=== PATIENT | female | born 1950 | race Caucasian/White ===

== ENCOUNTER 2024-01-27 16:07 | Inpatient (IN) ==
--- NOTE | 2024-01-27 16:48 | Emergency Department Note ---
Impression & Plan Dizziness, Unsteady, Headache ED Provider Note Provider: Andrew Claire MD DATE OF SERVICE: 01/27/2024 CHIEF COMPLAINT: Headache, near syncope, unsteady HISTORY OF PRESENT ILLNESS: Patient is a 73-year-old female past medical history of diabetes, hyperlipidemia, hypertension, and heart valve replacement on aspirin presenting here today with family. Patient over the past 3 to 4 weeks has had some intermittent episodes of faintness/dizziness and unsteadiness. Last 3 days has had fairly consistent headache although improved with Aleve. No fevers. No trauma or falls. Today woke up okay and then around 1030 to 11 AM this morning when bending over the bathroom had sudden onset of severe dizziness has been persistent. Unable to walk without significant assistance as she is so unsteady. Denies new numbness or tingling the extremities. Daughter states the patient had some slurred speech that has improved some from earlier. No chest pain or difficulty breathing or abdominal pain or nausea or vomiting reported. Has had some chronic ongoing diarrheal issues and stopped Ozempic about a week ago discussion with her doctor to see if this improves this. Denies cough or cold symptoms. Denies visual change. States when she turns her head or moves the dizziness seems to worsen at this time. Denies difficulty getting her words out or sinus congestion at this point. PAST MEDICAL HISTORY: As noted above MEDICATIONS: Reviewed no medications includes aspirin SOCIAL HISTORY: Non-smoker PHYSICAL EXAM: GENERAL: alert and oriented in no acute distress on stretcher daughter and grandson at bedside Head: normocephalic and atraumatic EYES: No injection, discharge or icterus. PERRL, EOMI. NECK: Trachea midline. Supple. ENT: Mucous membranes pink and moist. Pharynx without erythema or exudate. TMs clear bilaterally LUNGS: Airway patent. No retractions. Breath sounds clear with good air entry bilaterally. HEART: Regular rate and rhythm. No chest wall tenderness ABDOMEN: Soft and non-tender, without guarding or rebound. SKIN: Acyanotic, warm, dry, without rashes EXTREMITIES: Without swelling, tenderness or deformity NEUROLOGICAL: No tongue deviation. Moving all extremities. No leg drift. No aphasia. No facial droop or slurred speech. Normal strength and tone in the extremities. Sensation to gross touch normal. With movement of the head turning [id number] exacerbates dizziness symptoms. EK bpm normal sinus rhythm. No PVC or PAC. No acute ST segment elevation or depression with a QTc of 470. CONTINUOUS CARDIAC MONITORING: was ordered and showed a heart rate of 70s to 80s bpm in normal sinus rhythm Patient's laboratory studies and imaging reviewed. Differential includes Benign positional vertigo, dehydration, hypovolemia, anemia, tumor, infection, hypoglycemia, electrolyte abnormalities, cardiac sources, intracerebral event, toxicologic, neurologic, as well as other pathologies. IMPRESSION/MEDICAL DECISION MAKING: No infectious symptoms or fever reported. Leukocytosis 1.6 nonspecific. No anemia. No severe electrolyte abnormality signs of renal dysfunction. No thyroid dysfunction or evidence of acute cardiac injury with reassuring EKG and troponin. Chest x-ray without acute finding. CT and CTA of the head and neck obtained to look for any intracranial bleed given the headache and her dizziness symptoms or any acute vascular abnormality. Patient symptoms are somewhat provoked with seems almost more inner ear but then the slurred speech earlier does not really correlate well with this. Certainly given her age and risk factors CVA kelli in the differential but outside any window for thrombolytics given multiple hours since onset and the headache actually been there for several days. UA completed nitrite positive with 2+ bacteria but no white blood cells. Will send for culture but the patient denies symptoms. Will hold off on empiric treatment at this time. Given some Tylenol for the headache initially. No believe this represents subarachnoid hemorrhage or meningitis based on exam. No neurological deficits in extremities. 1 view chest x-ray per my interpretation without evidence of pneumonia pneumothorax. No significant pulmonary edema appreciable. Mild improvement of the headache. Still somewhat unsteady go to the bathroom. Will try low-dose of some meclizine and a small dose of Reglan to see if this further improves her headache and dizziness symptoms. CT of the head and CTA of the head and neck per radiology shows after some delay in obtaining the report no acute intracranial bleed or acute vascular abnormality./Chronic diseases noted in the radiology report. Patient with some improvement. Again we have some concerns given her comorbidities and the report of slurred speech this could be more than a vertiginous situation as such in discussion with her and family will bring in for further observation. Hospitalist team was consulted. DIAGNOSIS: Dizziness, unsteady, headache DISPOSITION: Hospitalist will evaluate Patient was agreeable with this plan. Past Med/Surg History Problem List (Updated 01/27/24 @ 21:14 by Andrew Claire M.D.) Headache (Acute) Unsteady (Acute) Dizziness (Acute) Social History Smoking Status: Never smoker Preferred Language: Palestinian Feels Safe at Home: Yes Allergies Allergies Allergy/AdvReac Type Severity Reaction Status Date / Time Penicillins Allergy Unknown HIVES Verified 01/27/24 17:02 Home Meds Home Medications Medication Instructions Recorded Confirmed amlodipine 5 mg tablet 5 mg PO QAM 01/27/24 01/27/24 aspirin 81 mg tablet,delayed 81 mg PO DAILY 01/27/24 01/27/24 release buspirone 5 mg tablet 5 mg PO BID PRN Anxiety 01/27/24 01/27/24 carvedilol 6.25 mg tablet 6.25 mg PO BID 01/27/24 01/27/24 fluoxetine 40 mg capsule 40 mg PO QAM 01/27/24 01/27/24 metformin 1,000 mg tablet 1,000 mg PO BID 01/27/24 01/27/24 omeprazole 40 mg capsule,delayed 40 mg PO BID 01/27/24 01/27/24 release pravastatin 20 mg tablet 20 mg PO QAM 01/27/24 01/27/24 zolpidem 10 mg tablet 10 mg PO HS 01/27/24 01/27/24 Results & Data (ED) Vital Signs Vital Signs - 24 hr 01/27/24 16:16 01/27/24 16:28 01/27/24 16:38 Temperature 36.6 C Temperature Source Temporal Artery Scan Pulse Rate 81 81 Pulse Rate [Left Apical] 79 Respiratory Rate 20 17 Respiratory Effort / Characteristics Non-Labored Non-Labored Spontaneous Respiratory Depth Normal Normal Respiratory Pattern Regular Blood Pressure 148/85 H Blood Pressure [Right Arm] 202/106 H Blood Pressure Mean 106 Blood Pressure Mean [Right Arm] 138 Pulse Oximetry 97 97 Oxygen Delivery Method Room Air Room Air Sepsis Recent Fever Within 48 Hours No Sepsis New/Unexplained Change in Mental Status No Sepsis Action Taken by Nursing No Action Required 01/27/24 16:57 01/27/24 17:00 01/27/24 17:15 Temperature Temperature Source Pulse Rate 72 75 74 Pulse Rate [Left Apical] Respiratory Rate 14 15 14 Respiratory Effort / Characteristics Respiratory Depth Respiratory Pattern Blood Pressure Blood Pressure [Right Arm] Blood Pressure Mean Blood Pressure Mean [Right Arm] Pulse Oximetry 97 94 96 Oxygen Delivery Method Room Air Room Air Room Air Sepsis Recent Fever Within 48 Hours Sepsis New/Unexplained Change in Mental Status Sepsis Action Taken by Nursing 01/27/24 17:30 01/27/24 17:42 01/27/24 18:02 Temperature Temperature Source Pulse Rate 73 74 Pulse Rate [Left Apical] Respiratory Rate 14 22 Respiratory Effort / Characteristics Respiratory Depth Respiratory Pattern Blood Pressure Blood Pressure [Right Arm] 199/93 H Blood Pressure Mean Blood Pressure Mean [Right Arm] 128 Pulse Oximetry 94 97 Oxygen Delivery Method Room Air Room Air Sepsis Recent Fever Within 48 Hours Sepsis New/Unexplained Change in Mental Status Sepsis Action Taken by Nursing 01/27/24 18:09 01/27/24 18:18 01/27/24 18:30 Temperature Temperature Source Pulse Rate 76 73 75 Pulse Rate [Left Apical] Respiratory Rate 20 21 23 Respiratory Effort / Characteristics Respiratory Depth Respiratory Pattern Blood Pressure 165/82 H Blood Pressure [Right Arm] Blood Pressure Mean 109 Blood Pressure Mean [Right Arm] Pulse Oximetry 96 96 94 Oxygen Delivery Method Room Air Room Air Room Air Sepsis Recent Fever Within 48 Hours Sepsis New/Unexplained Change in Mental Status Sepsis Action Taken by Nursing 01/27/24 19:00 01/27/24 19:36 01/27/24 19:42 Temperature Temperature Source Pulse Rate 75 73 73 Pulse Rate [Left Apical] Respiratory Rate 13 22 12 Respiratory Effort / Characteristics Respiratory Depth Respiratory Pattern Blood Pressure 132/75 Blood Pressure [Right Arm] Blood Pressure Mean 94 Blood Pressure Mean [Right Arm] Pulse Oximetry 96 97 97 Oxygen Delivery Method Room Air Room Air Room Air Sepsis Recent Fever Within 48 Hours Sepsis New/Unexplained Change in Mental Status Sepsis Action Taken by Nursing 01/27/24 20:00 01/27/24 20:23 01/27/24 20:33 Temperature Temperature Source Pulse Rate 71 76 72 Pulse Rate [Left Apical] Respiratory Rate 15 13 Respiratory Effort / Characteristics Respiratory Depth Respiratory Pattern Blood Pressure 147/78 H Blood Pressure [Right Arm] Blood Pressure Mean 101 Blood Pressure Mean [Right Arm] Pulse Oximetry 95 Oxygen Delivery Method Room Air Sepsis Recent Fever Within 48 Hours Sepsis New/Unexplained Change in Mental Status Sepsis Action Taken by Nursing 01/27/24 21:00 Temperature Temperature Source Pulse Rate 72 Pulse Rate [Left Apical] Respiratory Rate 15 Respiratory Effort / Characteristics Respiratory Depth Respiratory Pattern Blood Pressure Blood Pressure [Right Arm] Blood Pressure Mean Blood Pressure Mean [Right Arm] Pulse Oximetry 95 Oxygen Delivery Method Room Air Sepsis Recent Fever Within 48 Hours Sepsis New/Unexplained Change in Mental Status Sepsis Action Taken by Nursing Laboratory Data 01/27/24 16:37 01/27/24 16:37 Lab Results 01/27/24 01/27/24 Range/Units 16:37 18:43 WBC 11.63 H (4.8-10.8) K/ul RBC 5.22 (4.20-5.40) M/uL Hgb 14.3 (12.0-16.0) g/dl Hct 43.1 (37.0-47.0) % MCV 82.6 (80.0-100.0) fL MCH 27.4 (25.0-34.0) pg MCHC 33.2 (32.0-36.0) g/dL RDW Std Deviation 39.2 (36.4-46.3) fL RDW Coeff of Meet 13.1 (11.5-14.5) % Plt Count 245 (130-400) K/uL MPV 9.6 (9.4-12.4) fL Immature Gran % (Auto) 0.4 % Neut % (Auto) 84.1 % Lymph % (Auto) 10.8 % [place] % (Auto) 4.1 % Eos % (Auto) 0.3 % Baso % (Auto) 0.3 % Neut # (Auto) 9.77 H (1.40-6.50) K/uL Lymph # (Auto) 1.26 (1.20-3.40) K/uL [place] # (Auto) 0.48 (0.11-0.59) K/uL Eos # (Auto) 0.04 (0.00-0.50) K/uL Baso # (Auto) 0.03 (0.00-0.20) K/uL Immature Gran # (Auto) 0.05 (0.01-0.20) K/uL PT 10.3 (9.0-12.0) Seconds INR 0.9 (0.9-1.1) Sodium 139 (136-145) mmol/L Potassium 4.1 (3.5-5.1) mmol/L Chloride 108 H (98-107) mmol/L Carbon Dioxide 22 (21-32) mmol/L Anion Gap 9 (3-11) BUN 17 (6-23) mg/dl Creatinine 0.77 (0.6-1.2) mg/dl Est Cr Clr Drug Dosing 70.9 ml/min eGFR 80.39 BUN/Creatinine Ratio 22.1 H (10-20) Glucose 123 H (70-99(Fasting)) mg/dl Calcium 9.4 (8.6-10.3) mg/dl Magnesium 1.8 (1.7-2.4) mg/dl Total Bilirubin 0.3 (0.2-1.0) mg/dl AST 11 L (13-39) U/L ALT 8 (7-52) U/L Alkaline Phosphatase 64 (34-104) U/L Troponin I High Sens 4.0 (0-14) pg/ml Total Protein 7.1 (6.0-8.3) gm/dl Albumin 4.0 (3.4-5.0) gm/dl Globulin 3.1 (2.5-4.0) gm/dl Albumin/Globulin Ratio 1.3 (0.9-2) TSH 0.610 (0.300-4.500) uIu/ml Urine Color Yellow Urine Appearance Clear (Clear) Urine pH 5.5 (4.5-7.5) Ur Specific [place] > 1.045 H (1.000-1.030) Urine Protein Negative (Negative) Urine Glucose (UA) Negative (Negative) Urine Ketones Trace H (Negative) Urine Blood Negative (Negative) Urine Nitrite Positive A (Negative) Urine Bilirubin Negative (Negative) Urine Urobilinogen Negative (Negative) Ur Leukocyte Esterase Negative (Negative) Urine WBC (Auto) 0-5 (0-5) /hpf Urine RBC (Auto) 0-2 (0-2) /hpf U Hyaline Cast (Auto) 6-10 H (0-2) /lpf U Epithel Cells (Auto) 0-2 (0-2) /hpf Urine Bacteria (Auto) 2+ H (None Seen) Administered Medications Discontinued Medications Acetaminophen (Acetaminophen 500 Mg Tab) 1,000 mg PO NOW STA Stop: 01/27/24 16:45 Last Admin: 01/27/24 16:51 Dose: 1,000 mg Documented By: [facility] Ioversol (Optiray 320 125ml) 116 ml IV ONCE ONE Stop: 01/27/24 17:55 Last Admin: 01/27/24 17:54 Dose: 116 ml Documented By: WANDAK Meclizine HCl (Meclizine Hcl 25 Mg Tab) 25 mg PO NOW STA Stop: 01/27/24 20:12 Last Admin: 01/27/24 20:16 Dose: 25 mg Documented By: ENE Metoclopramide HCl (Metoclopramide Hcl Inj 5 Mg/Ml 2 Ml Vial) 5 mg IV ONE ONE Stop: 01/27/24 20:12 Last Admin: 01/27/24 20:16 Dose: 5 mg Documented By: ARABELLA Discharge Plan Visit Data Chief Complaint: Dizziness Stated Complaint: DIZZY,SLUR IN SPEECH,NEAR SYNCOPE ED Provider: Andrew Claire Discharge Problem: Dizziness, Unsteady, Headache Patient Disposition: Being Evaluated by Hospitalist Forms Stand Alone Forms: [facility] Prescriptions Prescriptions: No Action fluoxetine 40 mg capsule 40 mg PO QAM buspirone 5 mg tablet 5 mg PO BID PRN (Reason: Anxiety) carvedilol 6.25 mg tablet 6.25 mg PO BID amlodipine 5 mg tablet 5 mg PO QAM omeprazole 40 mg capsule,delayed release(DR/EC) 40 mg PO BID aspirin 81 mg Tablet,Delayed Release (Dr/Ec) 81 mg PO DAILY metformin 1,000 mg tablet 1,000 mg PO BID pravastatin 20 mg tablet 20 mg PO QAM zolpidem 10 mg tablet 10 mg PO HS Referrals Referrals: Rickey Emery MD [Surgeon] -
[2024-01-27] MEDS: ACETAMINOPHEN 500 MG TAB PO STA (16:51)
[2024-01-27 16:57] LABS: Basophils # (auto) 0.03 K/uL (0.00-0.20); Basophils % (auto) 0.3 %; Eosinophils # (auto) 0.04 K/uL (0.00-0.50); Eosinophils % (auto) 0.3 %; Hematocrit (blood only) 43.1 % (37.0-47.0); Hemoglobin 14.3 g/dl (12.0-16.0); Immature Granulocytes # (auto) 0.05 K/uL (0.01-0.20); Immature Granulocytes % (auto) 0.4 %; Lymphocytes # (auto) 1.26 K/uL (1.20-3.40); Lymphocytes % (auto) 10.8 %; Mean Corpuscular Hemoglobin 27.4 pg (25.0-34.0); Mean Corpuscular Hgb Conc 33.2 g/dL (32.0-36.0); Mean Corpuscular Volume 82.6 fL (80.0-100.0); Mean Platelet Volume 9.6 fL (9.4-12.4); Monocytes # (auto) 0.48 K/uL (0.11-0.59); Monocytes % (auto) 4.1 %; Neutrophils # (auto) 9.77 K/uL (1.40-6.50); Neutrophils % (auto) 84.1 %; Platelet Count 245 K/uL (130-400); RDW Coefficient of Variation 13.1 % (11.5-14.5); RDW Standard Deviation 39.2 fL (36.4-46.3); Red Blood Count 5.22 M/uL (4.20-5.40); White Blood Count 11.63 K/ul (4.8-10.8)
[2024-01-27 17:13] LABS: Albumin Globulin Ratio 1.3 (0.9-2); BUN Creatinine Ratio 22.1 (10-20); Bilirubin,Total 0.3 mg/dl (0.2-1.0); Calcium 9.4 mg/dl (8.6-10.3); Creatinine Clr Calc Pharmacy 70.9 ml/min; Globulin 3.1 gm/dl (2.5-4.0); Magnesium 1.8 mg/dl (1.7-2.4); Potassium 4.1 mmol/L (3.5-5.1); Total Protein 7.1 gm/dl (6.0-8.3)
[2024-01-27 17:25] LABS: INR 0.9 (0.9-1.1); Prothrombin Time 10.3 Seconds (9.0-12.0)
[2024-01-27 17:30] LABS: Thyroid Stimulating Hormone 0.61 uIu/ml (0.300-4.500)
[2024-01-27] MEDS: OPTIRAY 320 125ml IV ONE (17:54)
[2024-01-27 19:10] LABS: Appearance Urine Clear (Clear); Bacteria Urine Automated 2+ (None Seen); Bilirubin Urine Negative (Negative); Blood Urine Negative (Negative); Color Urine Yellow; Epithelial Cell Urine Auto 0-2 /hpf (0-2); Glucose Urine UA Negative (Negative); Ketones Urine Trace (Negative); Leukocyte Esterase Urine Negative (Negative); Nitrite Urine Positive (Negative); Protein Urine Negative (Negative); RBC Urine Automated 0-2 /hpf (0-2); Specific Gravity Urine > 1.045 (1.000-1.030); Urobilinogen Urine Negative (Negative); WBC Urine Automated 0-5 /hpf (0-5); pH Urine 5.5 (4.5-7.5)
[2024-01-27] MEDS: MECLIZINE HCL 25 MG TAB PO STA (20:16)
[2024-01-27] MEDS: METOCLOPRAMIDE HCL INJ 5 MG/ML 2 ML VIAL IV ONE (20:16)
--- NOTE | 2024-01-27 21:28 | XRay Report ---
EXAM x-ray chest one-view portable CLINICAL HISTORY: Headache near syncope PRIORS: None TECHNIQUE: AP portable upright FINDINGS: The chest is well-expanded. No airspace consolidation, effusion or congestive changes. Moderate atherosclerotic disease of the aortic knob. Heart size is normal. No pneumothorax. Trachea is patent. Osseous structures demonstrate no acute abnormality. No radiopaque foreign body. IMPRESSION: No plain film evidence of an acute cardiopulmonary process. Electronically signed by Marcelle Goldberg 01-27-2024 6:44 PM
--- NOTE | 2024-01-27 21:28 | CT Scan Report ---
EXAM: CTA head with CLINICAL HISTORY: Headache, near syncope, weak TECHNIQUE: Contiguous CTA axial images were obtained through the head after the administration of intravenous contrast. Sagittal and coronal reformations are supplied. PRIORS: None FINDINGS: The vertebral arteries form the basilar artery at the skull base. Mild atherosclerotic disease of the right distal vertebral artery and cavernous portions of the internal carotid arteries without hemodynamically significant stenosis.. [place] is patent. No thrombus or hemodynamically significant stenosis. No aneurysmal dilatation or banerjee aneurysm. No enhancing mass in the brain. IMPRESSION: No CTA evidence of an acute vascular abnormality. Electronically signed by Marcelle Goldberg 01-27-2024 6:28 PM
--- NOTE | 2024-01-27 21:28 | CT Scan Report ---
EXAM: CT angio neck with con CLINICAL HISTORY: Headache, near syncope, weak TECHNIQUE: Contiguous axial images were obtained through the neck after the administration of intravenous contrast. Sagittal and coronal reformations are supplied. MIPS are supplied. PRIORS: None FINDINGS: A left-sided aortic arch is present with moderate atherosclerotic disease. Mild to moderate atherosclerotic disease of the takeoff of the great vessels with no hemodynamically significant stenosis. RIGHT: Moderate atherosclerotic plaque is present involving the carotid bulb and proximal internal carotid artery, with stenosis of approximately 50%. The common and external carotid artery are unremarkable. The internal carotid artery enters the petrous portion of the skull base normally. LEFT: Moderate atherosclerotic disease of the carotid artery bulb and proximal internal carotid artery with stenosis of approximately 50%. The common and external carotid arteries are unremarkable. The internal carotid artery enters the petrous portion of the skull base normally. The vertebral arteries are well opacified. The right vertebral artery is dominant. Both vertebral arteries contribute to the basilar artery at the level of the skull base. Heterogeneous nodular appearance of the thyroid. Lung apices are unremarkable. Trachea is patent. Moderate degenerative change throughout the cervical spine. IMPRESSION: Atherosclerotic disease as above with no hemodynamically significant stenosis at this time. Electronically signed by Marcelle Goldberg 01-27-2024 6:28 PM
--- NOTE | 2024-01-27 21:28 | CT Scan Report ---
EXAMINATION: Head CT without CLINICAL HISTORY: Headache, near syncope, weak PRIORS: None TECHNIQUE: Contiguous axial images were obtained through the head without the use of intravenous contrast. Sagittal and coronal reformations are supplied. FINDINGS: Age appropriate parenchymal volume is noted. Gallo-white differentiation is preserved. No edema or midline shift. No intra-axial or extra-axial hemorrhage. Ventricles are normal in size and configuration. Brainstem and cerebellum have a normal appearance. Calvarium unremarkable. Paranasal sinuses and mastoid air cells are well-pneumatized. Globes are intact. No retrobulbar abnormality. IMPRESSION: No CT evidence of an acute intracranial abnormality. Electronically signed by Marcelle Goldberg 01-27-2024 6:28 PM
[2024-01-27] MEDS: cefTRIAXone SODIUM 2,000 MG/50 ML BAG IV STA (21:33)
[2024-01-27] MEDS ORDERED: CEFEPIME 1000MG 1,000 MG/10 ML SYR IV STA (21:47)
[2024-01-27] MEDS: MAGNESIUM SULFATE / D5W 1 GM/100 ML BAG IV ONE (22:03)
--- NOTE | 2024-01-27 22:20 | History & Physical Report ---
Date of Service January 27, 2024 Assessment & Plan (1) Dizziness: Plan: Hypertensive crisis Rule out TIA given transient slurred speech symptoms as per patient account CPAP noncompliance for OLEG possibly contributory to uncontrolled hypertension Complicated UTI, no sepsis for now history bioprosthetic AVR hyperlipidemia, on statin Rx DM2 on oral medications, unknown baseline control anxiety/mood disorder, stable Admit to medical telemetry permissive hypertension for now given concern for TIA MRI brain, TTE for TIA workup Update lipid profile and hemoglobin A1c Neurology evaluation contingent on workup results. Urine CS, ceftriaxone ISS BG goal 1 10-1 40, carb count coverage DVT prophylaxis per Lovenox subcu Full code Patient daughter requesting updates providers. Ms. Michelle Goff, contact #[phone]. Text document was generated using [employer] voice recognition software. It may contain grammatical or spelling errors. Kindly contact undersigned for clarification of any documentation item in question. History of Present Illness Chief Complaint: Headache, dizziness, weakness Primary Care Provider: Ron Dudley History obtained from patient, family, and records. Medical history significant for history bioprosthetic AVR, hypertension, hyperlipidemia, OLEG (current CPAP noncompliance), DM2 on oral medications, anxiety/mood disorder. Last confinement 2006 under orthopedic service for elective right knee surgery. Last week, patient with intermittent episodes of dizziness described as lightheadedness. No spinning sensation or tinnitus or unusual hearing loss. Symptoms later followed by achy headache symptoms. Blood pressure at home okay as per patient although unable to provide numbers. Noncompliant with CPAP for more than 10 years due to machine issues. Denies chest pain, SOB, abdominal pain, dysuria symptoms. Transient slurred speech noted by daughter today. Highest SBP of 200s documented at the ER. Symptoms currently resolved. Medical History as above Surgical History : Knee surgery, carpal tunnel surgery, ovarian abscess removal, dental surgery, aortic valve surgery Family History : DM Personal/Social history : Non-smoker, no EtOH intake, retired from factory work Allergies Allergy/AdvReac Type Severity Reaction Status Date / Time Penicillins Allergy Unknown HIVES Verified 01/27/24 17:02 semaglutide [From Ozempic] AdvReac Intermediate Diarrhea Verified 01/28/24 10:44 Home Medications Medication Instructions Recorded Confirmed Type amlodipine 5 mg tablet 5 mg PO QAM 01/27/24 01/27/24 History aspirin 81 mg tablet,delayed 81 mg PO DAILY 01/27/24 01/27/24 History release buspirone 5 mg tablet 5 mg PO BID PRN Anxiety 01/27/24 01/27/24 History carvedilol 6.25 mg tablet 6.25 mg PO BID 01/27/24 01/27/24 History fluoxetine 40 mg capsule 40 mg PO QAM 01/27/24 01/27/24 History metformin 1,000 mg tablet 1,000 mg PO BID 01/27/24 01/27/24 History omeprazole 40 mg capsule,delayed 40 mg PO BID 01/27/24 01/27/24 History release pravastatin 20 mg tablet 20 mg PO QAM 01/27/24 01/27/24 History zolpidem 10 mg tablet 10 mg PO HS 01/27/24 01/27/24 History Past Med/Surg History Problem List (Updated 01/27/24 @ 21:14 by Andrew Claire M.D.) Headache (Acute) Unsteady (Acute) Dizziness (Acute) Social History Smoking Status: Never smoker Hx Alcohol Use: No Hx Substance Use: No Preferred Language: [place]i Communication Ability: Effective Junior Qa Analyst Required: No Beliefs That Will Affect Care: None Current Living Situation: Family Feels Safe at Home: Yes Assistive Devices: Denture - Upper and Glasses Review of Systems Review of Systems: As per HPI, all other systems reviewed and negative Physical Exam Physical Exam: GENERAL: Comfortable, pleasant, obese, short neck, slightly anxious, no respiratory distress SKIN: Normal color, warm HEENT: Bespectacled, pink palpebral conjunctivae, no ptosis, dry buccal mucosa NECK : Supple, no tenderness CHEST : Decreased breath sounds, no tenderness HEART : RRR, systolic murmur ABDOMEN: Some distention, nontender EXTREMITIES : Minimal LE swelling, no LE tenderness, no other conspicuous deformities noted NEUROLOGIC : Coherent, no facial asymmetry, no other gross focality Results & Data Results & Data Vital Signs (Past 12 Hours) Vital Signs Temp Pulse Pulse Resp BP BP Pulse Ox 01/27/24 22:03 74 16 155/75 H 96 01/27/24 21:36 74 21 160/79 H 97 01/27/24 21:21 70 13 97 01/27/24 21:18 71 17 97 01/27/24 21:00 72 15 95 01/27/24 20:33 72 13 01/27/24 20:23 76 01/27/24 20:00 71 15 147/78 H 95 01/27/24 19:42 73 12 97 01/27/24 19:36 73 22 97 01/27/24 19:00 75 13 132/75 96 01/27/24 18:30 75 23 165/82 H 94 01/27/24 18:18 73 21 96 01/27/24 18:09 76 20 96 01/27/24 18:02 199/93 H 01/27/24 17:42 74 22 97 01/27/24 17:30 73 14 94 01/27/24 17:15 74 14 96 01/27/24 17:00 75 15 94 01/27/24 16:57 72 14 97 01/27/24 16:38 79 17 202/106 H 97 01/27/24 16:28 81 01/27/24 16:16 36.6 C 81 20 148/85 H 97 O2 Del Method 01/27/24 22:03 Room Air 01/27/24 21:36 Room Air 01/27/24 21:21 Room Air 01/27/24 21:18 Room Air 01/27/24 21:00 Room Air 01/27/24 20:33 01/27/24 20:23 01/27/24 20:00 Room Air 01/27/24 19:42 Room Air 01/27/24 19:36 Room Air 01/27/24 19:00 Room Air 01/27/24 18:30 Room Air 01/27/24 18:18 Room Air 01/27/24 18:09 Room Air 01/27/24 18:02 01/27/24 17:42 Room Air 01/27/24 17:30 Room Air 01/27/24 17:15 Room Air 01/27/24 17:00 Room Air 01/27/24 16:57 Room Air 01/27/24 16:38 Room Air 01/27/24 16:28 01/27/24 16:16 Room Air Laboratory Results Laboratory Results WBC 11.63 K/ul (4.8-10.8) H 01/27/24 16:37 RBC 5.22 M/uL (4.20-5.40) 01/27/24 16:37 Hgb 14.3 g/dl (12.0-16.0) 01/27/24 16:37 Hct 43.1 % (37.0-47.0) 01/27/24 16:37 MCV 82.6 fL (80.0-100.0) 01/27/24 16:37 MCH 27.4 pg (25.0-34.0) 01/27/24 16:37 MCHC 33.2 g/dL (32.0-36.0) 01/27/24 16:37 RDW Std Deviation 39.2 fL (36.4-46.3) 01/27/24 16:37 RDW Coeff of Meet 13.1 % (11.5-14.5) 01/27/24 16:37 Plt Count 245 K/uL (130-400) 01/27/24 16:37 MPV 9.6 fL (9.4-12.4) 01/27/24 16:37 Immature Gran % (Auto) 0.4 % 01/27/24 16:37 Neut % (Auto) 84.1 % 01/27/24 16:37 Lymph % (Auto) 10.8 % 01/27/24 16:37 Dickinson % (Auto) 4.1 % 01/27/24 16:37 Eos % (Auto) 0.3 % 01/27/24 16:37 Baso % (Auto) 0.3 % 01/27/24 16:37 Neut # (Auto) 9.77 K/uL (1.40-6.50) H 01/27/24 16:37 Lymph # (Auto) 1.26 K/uL (1.20-3.40) 01/27/24 16:37 Dickinson # (Auto) 0.48 K/uL (0.11-0.59) 01/27/24 16:37 Eos # (Auto) 0.04 K/uL (0.00-0.50) 01/27/24 16:37 Baso # (Auto) 0.03 K/uL (0.00-0.20) 01/27/24 16:37 Immature Gran # (Auto) 0.05 K/uL (0.01-0.20) 01/27/24 16:37 PT 10.3 Seconds (9.0-12.0) 01/27/24 16:37 INR 0.9 (0.9-1.1) 01/27/24 16:37 Sodium 139 mmol/L (136-145) 01/27/24 16:37 Potassium 4.1 mmol/L (3.5-5.1) 01/27/24 16:37 Chloride 108 mmol/L (98-107) H 01/27/24 16:37 Carbon Dioxide 22 mmol/L (21-32) 01/27/24 16:37 Anion Gap 9 (3-11) 01/27/24 16:37 BUN 17 mg/dl (6-23) 01/27/24 16:37 Creatinine 0.77 mg/dl (0.6-1.2) 01/27/24 16:37 Est Cr Clr Drug Dosing 70.9 ml/min 01/27/24 16:37 eGFR 80.39 01/27/24 16:37 BUN/Creatinine Ratio 22.1 (10-20) H 01/27/24 16:37 Glucose 123 mg/dl (70-99(Fasting)) H 01/27/24 16:37 Calcium 9.4 mg/dl (8.6-10.3) 01/27/24 16:37 Magnesium 1.8 mg/dl (1.7-2.4) 01/27/24 16:37 Total Bilirubin 0.3 mg/dl (0.2-1.0) 01/27/24 16:37 AST 11 U/L (13-39) L 01/27/24 16:37 ALT 8 U/L (7-52) 01/27/24 16:37 Alkaline Phosphatase 64 U/L (34-104) 01/27/24 16:37 Troponin I High Sens 4.0 pg/ml (0-14) 01/27/24 16:37 Total Protein 7.1 gm/dl (6.0-8.3) 01/27/24 16:37 Albumin 4.0 gm/dl (3.4-5.0) 01/27/24 16:37 Globulin 3.1 gm/dl (2.5-4.0) 01/27/24 16:37 Albumin/Globulin Ratio 1.3 (0.9-2) 01/27/24 16:37 TSH 0.610 uIu/ml (0.300-4.500) 01/27/24 16:37 Urine Color Yellow 01/27/24 18:43 Urine Appearance Clear (Clear) 01/27/24 18:43 Urine pH 5.5 (4.5-7.5) 01/27/24 18:43 Ur Specific [place] > 1.045 (1.000-1.030) H 01/27/24 18:43 Urine Protein Negative (Negative) 01/27/24 18:43 Urine Glucose (UA) Negative (Negative) 01/27/24 18:43 Urine Ketones Trace (Negative) H 01/27/24 18:43 Urine Blood Negative (Negative) 01/27/24 18:43 Urine Nitrite Positive (Negative) A 01/27/24 18:43 Urine Bilirubin Negative (Negative) 01/27/24 18:43 Urine Urobilinogen Negative (Negative) 01/27/24 18:43 Ur Leukocyte Esterase Negative (Negative) 01/27/24 18:43 Urine WBC (Auto) 0-5 /hpf (0-5) 01/27/24 18:43 Urine RBC (Auto) 0-2 /hpf (0-2) 01/27/24 18:43 U Hyaline Cast (Auto) 6-10 /lpf (0-2) H 01/27/24 18:43 U Epithel Cells (Auto) 0-2 /hpf (0-2) 01/27/24 18:43 Urine Bacteria (Auto) 2+ (None Seen) H 01/27/24 18:43 Impressions Chest X-Ray 01/27/24 16:44 EXAM x-ray chest one-view portable CLINICAL HISTORY: Headache near syncope PRIORS: None TECHNIQUE: AP portable upright FINDINGS: The chest is well-expanded. No airspace consolidation, effusion or congestive changes. Moderate atherosclerotic disease of the aortic knob. Heart size is normal. No pneumothorax. Trachea is patent. Osseous structures demonstrate no acute abnormality. No radiopaque foreign body. IMPRESSION: No plain film evidence of an acute cardiopulmonary process. Electronically signed by Marcelle Goldberg 01-27-2024 6:[address] 01/27/24 16:44 EXAMINATION: Head CT without CLINICAL HISTORY: Headache, near syncope, weak PRIORS: None TECHNIQUE: Contiguous axial images were obtained through the head without the use of intravenous contrast. Sagittal and coronal reformations are supplied. FINDINGS: Age appropriate parenchymal volume is noted. Gallo-white differentiation is preserved. No edema or midline shift. No intra-axial or extra-axial hemorrhage. Ventricles are normal in size and configuration. Brainstem and cerebellum have a normal appearance. Calvarium unremarkable. Paranasal sinuses and mastoid air cells are well-pneumatized. Globes are intact. No retrobulbar abnormality. IMPRESSION: No CT evidence of an acute intracranial abnormality. Electronically signed by Marcelle Goldberg 01-27-2024 6:28 PM Head CTA 01/27/24 16:44 EXAM: CTA head with CLINICAL HISTORY: Headache, near syncope, weak TECHNIQUE: Contiguous CTA axial images were obtained through the head after the administration of intravenous contrast. Sagittal and coronal reformations are supplied. PRIORS: None FINDINGS: The vertebral arteries form the basilar artery at the skull base. Mild atherosclerotic disease of the right distal vertebral artery and cavernous portions of the internal carotid arteries without hemodynamically significant stenosis.. [place] of [place] is patent. No thrombus or hemodynamically significant stenosis. No aneurysmal dilatation or banerjee aneurysm. No enhancing mass in the brain. IMPRESSION: No CTA evidence of an acute vascular abnormality. Electronically signed by Marcelle Goldberg 01-27-2024 6:28 PM Neck CTA 01/27/24 16:44 EXAM: CT angio neck with con CLINICAL HISTORY: Headache, near syncope, weak TECHNIQUE: Contiguous axial images were obtained through the neck after the administration of intravenous contrast. Sagittal and coronal reformations are supplied. MIPS are supplied. PRIORS: None FINDINGS: A left-sided aortic arch is present with moderate atherosclerotic disease. Mild to moderate atherosclerotic disease of the takeoff of the great vessels with no hemodynamically significant stenosis. RIGHT: Moderate atherosclerotic plaque is present involving the carotid bulb and proximal internal carotid artery, with stenosis of approximately 50%. The common and external carotid artery are unremarkable. The internal carotid artery enters the petrous portion of the skull base normally. LEFT: Moderate atherosclerotic disease of the carotid artery bulb and proximal internal carotid artery with stenosis of approximately 50%. The common and external carotid arteries are unremarkable. The internal carotid artery enters the petrous portion of the skull base normally. The vertebral arteries are well opacified. The right vertebral artery is dominant. Both vertebral arteries contribute to the basilar artery at the level of the skull base. Heterogeneous nodular appearance of the thyroid. Lung apices are unremarkable. Trachea is patent. Moderate degenerative change throughout the cervical spine. IMPRESSION: Atherosclerotic disease as above with no hemodynamically significant stenosis at this time. Electronically signed by Marcelle Goldberg 01-27-2024 6:28 PM Diagnostic Findings EKG as per my interpretation : Rate 75, NSR, normal axis, LVH, septal infarct, no ischemia
[2024-01-27 22:42] LABS: Estimated Average Glucose 111 mg/dl; Hemoglobin A1C 5.5 % (4.5-5.6)
[2024-01-27] MEDS ORDERED: DEXTROSE 50% 50 ML SYRINGE IV PRN (22:53)
[2024-01-27] MEDS ORDERED: CARBOHYDRATES FOR HYPOGLYCEMIA PO PRN (22:53)
[2024-01-27] MEDS ORDERED: GLUCOSE 10 TAB/TUBE PO PRN (22:53)
[2024-01-27] MEDS ORDERED: GLUCAGON FOR INJ 1 MG VIAL SQ PRN (22:53)
[2024-01-27] MEDS ORDERED: GLUCOSE 40% GEL 15 GM TUBE PO PRN (22:53)
[2024-01-27] MEDS ORDERED: PROMETHAZINE 6.25 MG/50.25 ML BAG IV PRN (22:54)
[2024-01-27] MEDS ORDERED: ACETAMINOPHEN 325 MG TAB PO PRN (22:54)
[2024-01-27] MEDS ORDERED: oxyCODONE HCL IR 5 MG TAB (IMMEDIATE RELEASE) PO PRN (22:54)
[2024-01-27] MEDS ORDERED: PHARMACIST DISCHARGE MED REC CONSULT PRN (22:57)
[2024-01-27] MEDS ORDERED: LORazepam 0.5 MG TAB PO PRN (23:00)
[2024-01-27] MEDS: busPIRone 5 MG TAB PO PRN (23:31)
[2024-01-27] MEDS: LORazepam 0.5 MG TAB PO PRN (23:38)
[2024-01-27] MEDS: LORazepam 0.5 MG TAB ONE (23:39)
[2024-01-28] MEDS: INSULIN ASPART PER UNIT CHARGE SC SCH (00:41)
[2024-01-28] MEDS: carvediloL 3.125 MG TAB PO STA (01:02)
--- NOTE | 2024-01-28 01:39 | Magnetic Resonance Report ---
Exam(s): MRI HEAD Without Contrast EXAM: MR Head Without Intravenous Contrast CLINICAL HISTORY: Reason for exam: tia. TECHNIQUE: Magnetic resonance images of the head/brain without intravenous contrast in multiple planes. COMPARISON: Prior head CT from January 27, 2024. FINDINGS: Brain: Mild nonspecific white matter changes. The flow was the base the brain are intact. No mass. No hemorrhage. No acute infarct. Ventricles: Unremarkable. No ventriculomegaly. Bones/joints: Unremarkable. No acute fracture. Sinuses: Unremarkable as visualized. No acute sinusitis. Mastoid air cells: Unremarkable as visualized. No mastoid effusion. Orbits: Unremarkable as visualized. IMPRESSION: No evidence of acute intracranial pathology. Electronically signed by: Shi Escalera MD 01/28/24 01:39 AM
[2024-01-28 06:05] LABS: Basophils # (auto) 0.02 K/uL (0.00-0.20); Basophils % (auto) 0.2 %; Eosinophils % (auto) 1.2 %; Hematocrit (blood only) 37.7 % (37.0-47.0); Hemoglobin 12.4 g/dl (12.0-16.0); Immature Granulocytes # (auto) 0.03 K/uL (0.01-0.20); Immature Granulocytes % (auto) 0.4 %; Lymphocytes # (auto) 2.06 K/uL (1.20-3.40); Lymphocytes % (auto) 24.8 %; Mean Corpuscular Hemoglobin 26.7 pg (25.0-34.0); Mean Corpuscular Hgb Conc 32.9 g/dL (32.0-36.0); Mean Corpuscular Volume 81.3 fL (80.0-100.0); Mean Platelet Volume 9.3 fL (9.4-12.4); Monocytes # (auto) 0.56 K/uL (0.11-0.59); Monocytes % (auto) 6.7 %; Neutrophils # (auto) 5.54 K/uL (1.40-6.50); Neutrophils % (auto) 66.7 %; Platelet Count 218 K/uL (130-400); RDW Coefficient of Variation 13.2 % (11.5-14.5); Red Blood Count 4.64 M/uL (4.20-5.40); White Blood Count 8.31 K/ul (4.8-10.8)
[2024-01-28 06:30] LABS: Chol HDL Ratio 5.1 (0-5)
[2024-01-28 06:32] LABS: BUN Creatinine Ratio 18.5 (10-20); Calcium 8.8 mg/dl (8.6-10.3); Creatinine Clr Calc Pharmacy 93.8 ml/min; Potassium 3.9 mmol/L (3.5-5.1)
[2024-01-28] MEDS: PERFLUTREN LIPID MICROSPHERE (DEFINITY) IV ONE (07:50)
[2024-01-28] MEDS: ASPIRIN 81 MG ECTAB PO SCH (08:48)
[2024-01-28] MEDS: PRAVASTATIN SOD 20 MG TAB PO SCH (08:48)
[2024-01-28] MEDS: FLUoxetine HCL 20 MG CAP PO SCH (08:48)
[2024-01-28] MEDS: amLODIPine BESYLATE 5 MG TAB PO SCH (08:48)
[2024-01-28] MEDS: carvediloL 3.125 MG TAB PO SCH (08:48)
[2024-01-28] MEDS: PANTOprazole 40 MG TAB PO SCH (08:48)
[2024-01-28] MEDS: ENOXAPARIN INJ 40 MG/0.4 ML SYR SQ SCH (08:49)
--- NOTE | 2024-01-28 09:09 | Electrocardiogram Report ---
Test Reason : Blood Pressure : */* mmHG Vent. Rate : 76 BPM Atrial Rate : 76 BPM P-R Int : 140 ms QRS Dur : 102 ms QT Int : 418 ms P-R-T Axes : 67 9 68 degrees QTcB Int : 470 ms Normal sinus rhythm Minimal voltage criteria for LVH, may be normal variant ( Carl product ) Anterior infarct , age undetermined Abnormal ECG When compared with ECG of 20-Dec-2006 18:15, MANUAL COMPARISON REQUIRED PREVIOUS ECG IS INCOMPATIBLE Confirmed by Jonelle Mancini (Braden) on 01/28/2024 9:09:40 AM Referred By: REFERRED SELF Confirmed By: Jonelle Mancini
--- NOTE | 2024-01-28 11:35 | Hospitalist Progress Note ---
Date of Service January 28, 2024 Assessment & Plan (1) Dizziness: Plan Pt is a 73yoF with PMHx significant for history bioprosthetic AVR, hypertension, hyperlipidemia, OLEG (current CPAP noncompliance), DM2 on oral medications, anxiety/mood disorder who presented with dizziness and headache and transient slurred speech. Dizziness Stroke-like symptoms patient presenting with dizziness, headache and transient slurred speech Head CT on arrival unremarkable Head and neck CTA with neck CTA noting atherosclerosis but no significant stenosis MRI with no acute stroke UA suggestive of infection Urine culture currently growing E. coli UTI likely cause of her presenting symptoms Continue with IV Rocephin Echo, PT/OT recs pending Continue home pravastatin and baby aspirin continue to monitor Hypertension BP significantly elevated on admission Continue home Coreg and amlodipine Improved DM2 hemoglobin A1c currently normal at 5.5 Hold home agents Sliding scale insulin Continue other home meds as ordered Diet: DM2 DVT prophylaxis: Lovenox subcu Dispo: PT OT ordered for further recs Admission and Anticipated Discharge Date Admission Date: January 27, 2024 Subjective patient was seen sitting up in bed states that the headache she presented with had improved but the dizziness was still present Denies any dysuria Review of Systems Review of Systems: All systems reviewed & are unremarkable except as noted in Subjective Physical Exam Physical Exam: General: Alert, oriented. No acute distress Psych: Appropriate mood and affect HEENT: NC/AT CV: RRR Resp: Breath sounds clear bilaterally, no increased effort of breathing Abdomen:Soft, nontender Extremities: No edema in lower extremities bilaterally. Results & Data Results & Data Vital Signs (Past 12 Hours) Vital Signs Temp Pulse Pulse Resp BP Pulse Ox O2 Del Method 01/28/24 07:57 36.4 C L 70 16 184/78 H 95 Room Air 01/28/24 07:48 68 01/28/24 03:30 36.6 C 66 18 151/77 H 96 Room Air 01/28/24 01:04 Room Air 01/28/24 01:04 36.8 C 72 18 196/86 H 97 Room Air 01/28/24 00:36 36.8 C 72 18 196/86 H 97 Room Air 01/28/24 00:20 80 Diagnostic Findings Chest X-Ray 01/27/24 16:44 EXAM x-ray chest one-view portable CLINICAL HISTORY: Headache near syncope PRIORS: None TECHNIQUE: AP portable upright FINDINGS: The chest is well-expanded. No airspace consolidation, effusion or congestive changes. Moderate atherosclerotic disease of the aortic knob. Heart size is normal. No pneumothorax. Trachea is patent. Osseous structures demonstrate no acute abnormality. No radiopaque foreign body. IMPRESSION: No plain film evidence of an acute cardiopulmonary process. Electronically signed by Marcelle Goldberg 01-27-2024 6:[address] 01/27/24 16:44 EXAMINATION: Head CT without CLINICAL HISTORY: Headache, near syncope, weak PRIORS: None TECHNIQUE: Contiguous axial images were obtained through the head without the use of intravenous contrast. Sagittal and coronal reformations are supplied. FINDINGS: Age appropriate parenchymal volume is noted. Gallo-white differentiation is preserved. No edema or midline shift. No intra-axial or extra-axial hemorrhage. Ventricles are normal in size and configuration. Brainstem and cerebellum have a normal appearance. Calvarium unremarkable. Paranasal sinuses and mastoid air cells are well-pneumatized. Globes are intact. No retrobulbar abnormality. IMPRESSION: No CT evidence of an acute intracranial abnormality. Electronically signed by Marcelle Goldberg 01-27-2024 6:28 PM Head CTA 01/27/24 16:44 EXAM: CTA head with CLINICAL HISTORY: Headache, near syncope, weak TECHNIQUE: Contiguous CTA axial images were obtained through the head after the administration of intravenous contrast. Sagittal and coronal reformations are supplied. PRIORS: None FINDINGS: The vertebral arteries form the basilar artery at the skull base. Mild atherosclerotic disease of the right distal vertebral artery and cavernous portions of the internal carotid arteries without hemodynamically significant stenosis.. [place] of [place] is patent. No thrombus or hemodynamically significant stenosis. No aneurysmal dilatation or banerjee aneurysm. No enhancing mass in the brain. IMPRESSION: No CTA evidence of an acute vascular abnormality. Electronically signed by Marcelle Goldberg 01-27-2024 6:28 PM Neck CTA 01/27/24 16:44 EXAM: CT angio neck with con CLINICAL HISTORY: Headache, near syncope, weak TECHNIQUE: Contiguous axial images were obtained through the neck after the administration of intravenous contrast. Sagittal and coronal reformations are supplied. MIPS are supplied. PRIORS: None FINDINGS: A left-sided aortic arch is present with moderate atherosclerotic disease. Mild to moderate atherosclerotic disease of the takeoff of the great vessels with no hemodynamically significant stenosis. RIGHT: Moderate atherosclerotic plaque is present involving the carotid bulb and proximal internal carotid artery, with stenosis of approximately 50%. The common and external carotid artery are unremarkable. The internal carotid artery enters the petrous portion of the skull base normally. LEFT: Moderate atherosclerotic disease of the carotid artery bulb and proximal internal carotid artery with stenosis of approximately 50%. The common and external carotid arteries are unremarkable. The internal carotid artery enters the petrous portion of the skull base normally. The vertebral arteries are well opacified. The right vertebral artery is dominant. Both vertebral arteries contribute to the basilar artery at the level of the skull base. Heterogeneous nodular appearance of the thyroid. Lung apices are unremarkable. Trachea is patent. Moderate degenerative change throughout the cervical spine. IMPRESSION: Atherosclerotic disease as above with no hemodynamically significant stenosis at this time. Electronically signed by Marcelle Goldberg 01-27-2024 6:28 PM Brain MRI 01/27/24 22:57 Exam(s): MRI HEAD Without Contrast EXAM: MR Head Without Intravenous Contrast CLINICAL HISTORY: Reason for exam: tia. TECHNIQUE: Magnetic resonance images of the head/brain without intravenous contrast in multiple planes. COMPARISON: Prior head CT from January 27, 2024. FINDINGS: Brain: Mild nonspecific white matter changes. The flow was the base the brain are intact. No mass. No hemorrhage. No acute infarct. Ventricles: Unremarkable. No ventriculomegaly. Bones/joints: Unremarkable. No acute fracture. Sinuses: Unremarkable as visualized. No acute sinusitis. Mastoid air cells: Unremarkable as visualized. No mastoid effusion. Orbits: Unremarkable as visualized. IMPRESSION: No evidence of acute intracranial pathology. Electronically signed by: Shi Escalera MD 01/28/24 01:39 AM
[2024-01-28] MEDS: cefTRIAXone SODIUM 2,000 MG/50 ML BAG IV SCH (20:46)
[2024-01-28] MEDS: ZOLPIDEM TARTRATE 5 MG TAB PO PRN (20:46)
[2024-01-29 06:39] LABS: Basophils # (auto) 0.03 K/uL (0.00-0.20); Basophils % (auto) 0.4 %; Eosinophils # (auto) 0.11 K/uL (0.00-0.50); Eosinophils % (auto) 1.5 %; Hematocrit (blood only) 39.4 % (37.0-47.0); Immature Granulocytes # (auto) 0.04 K/uL (0.01-0.20); Immature Granulocytes % (auto) 0.5 %; Lymphocytes # (auto) 2.01 K/uL (1.20-3.40); Lymphocytes % (auto) 27.1 %; Mean Corpuscular Hemoglobin 27.4 pg (25.0-34.0); Mean Corpuscular Volume 82.9 fL (80.0-100.0); Monocytes # (auto) 0.51 K/uL (0.11-0.59); Monocytes % (auto) 6.9 %; Neutrophils # (auto) 4.73 K/uL (1.40-6.50); Neutrophils % (auto) 63.6 %; Platelet Count 219 K/uL (130-400); RDW Coefficient of Variation 13.2 % (11.5-14.5); RDW Standard Deviation 40.1 fL (36.4-46.3); Red Blood Count 4.75 M/uL (4.20-5.40); White Blood Count 7.43 K/ul (4.8-10.8)
[2024-01-29 07:18] LABS: BUN Creatinine Ratio 16.2 (10-20); Calcium 8.9 mg/dl (8.6-10.3); Creatinine Clr Calc Pharmacy 81.9 ml/min; Potassium 3.8 mmol/L (3.5-5.1)
--- NOTE | 2024-01-29 11:21 | Hospitalist Progress Note ---
Date of Service January 29, 2024 Assessment & Plan (1) Dizziness: Plan Pt is a 73yoF with PMHx significant for history bioprosthetic AVR, hypertension, hyperlipidemia, OLEG (current CPAP noncompliance), DM2 on oral medications, anxiety/mood disorder who presented with dizziness and headache and transient slurred speech. Dizziness Stroke-like symptoms patient presenting with dizziness, headache and transient slurred speech Head CT on arrival unremarkable Head and neck CTA with neck CTA noting atherosclerosis but no significant stenosis MRI with no acute stroke UA suggestive of infection Urine culture currently growing E. coli sensitive to rocephin UTI likely cause of her presenting symptoms Continue with IV Rocephin Echo with noted EF 55 to 60%, mild LVH, bioprosthetic aortic valve, moderate moderate mitral valve calcification and trace mitral regurg PT/OT rec home with Continue home pravastatin and baby aspirin continue to monitor Hypertension BP significantly elevated on admission Continue home Coreg and amlodipine Improved DM2 hemoglobin A1c currently normal at 5.5 Hold home agents Sliding scale insulin Continue other home meds as ordered Diet: DM2 DVT prophylaxis: Lovenox subcu Dispo: PT OT rec home with Admission and Anticipated Discharge Date Admission Date: January 27, 2024 Subjective patient was seen sitting up in bed States that the headache and dizziness were both improved today Denies any dysuria her daughter was called and updated. States that patient lives with her and her family and would like patient to stay another night just to ensure stability before going home with home health services Review of Systems Review of Systems: All systems reviewed & are unremarkable except as noted in Subjective Physical Exam Physical Exam: General: Alert, oriented. No acute distress Psych: Appropriate mood and affect HEENT: NC/AT CV: RRR Resp: Breath sounds clear bilaterally, no increased effort of breathing Abdomen:Soft, nontender Extremities: No edema in lower extremities bilaterally. Results & Data Results & Data Vital Signs (Past 12 Hours) Vital Signs Temp Pulse Pulse Resp BP Pulse Ox O2 Del Method 01/29/24 07:19 36.6 C 74 18 175/82 H 96 Room Air 01/29/24 07:00 71 01/29/24 03:25 36.7 C 73 18 161/85 H 95 Room Air 01/29/24 00:38 Room Air 01/29/24 00:00 36.9 C 81 18 154/81 H 94 Room Air
[2024-01-30 07:55] LABS: Basophils # (auto) 0.03 K/uL (0.00-0.20); Basophils % (auto) 0.4 %; Eosinophils % (auto) 1.3 %; Hematocrit (blood only) 40.6 % (37.0-47.0); Hemoglobin 13.3 g/dl (12.0-16.0); Immature Granulocytes # (auto) 0.04 K/uL (0.01-0.20); Immature Granulocytes % (auto) 0.5 %; Lymphocytes # (auto) 2.06 K/uL (1.20-3.40); Lymphocytes % (auto) 26.4 %; Mean Corpuscular Hemoglobin 26.9 pg (25.0-34.0); Mean Corpuscular Hgb Conc 32.8 g/dL (32.0-36.0); Monocytes # (auto) 0.49 K/uL (0.11-0.59); Monocytes % (auto) 6.3 %; Neutrophils # (auto) 5.07 K/uL (1.40-6.50); Neutrophils % (auto) 65.1 %; Platelet Count 213 K/uL (130-400); RDW Coefficient of Variation 13.1 % (11.5-14.5); RDW Standard Deviation 38.6 fL (36.4-46.3); Red Blood Count 4.95 M/uL (4.20-5.40); White Blood Count 7.79 K/ul (4.8-10.8)
[2024-01-30 08:10] VITALS: PULSE 65; RESP 18; TEMP 98.1; O2SAT 95
[2024-01-30 08:17] LABS: BUN Creatinine Ratio 17.2 (10-20); Calcium 9.3 mg/dl (8.6-10.3); Creatinine Clr Calc Pharmacy 69.5 ml/min; Phosphorus 4.1 mg/dl (2.5-4.9); Potassium 4.3 mmol/L (3.5-5.1)
[2024-01-30] MEDS: CEFDINIR 300 MG CAP PO SCH (10:57)
[2024-01-30] MEDS: DOCUSATE SODIUM 100 MG CAP PO ONE (10:57)
[2024-01-30] MEDS: POLYETHYLENE (MIRALAX) 17 GM PACK PO SCH (10:57)
[2024-01-30 11:32] VITALS: BP 154/81
--- NOTE | 2024-01-30 11:33 | Discharge Summary ---
Discharge Summary Date of Service January 30, 2024 Principal Dx & Hospital Course #1 = Principal Diagnosis (1) Dizziness: Plan Ms Goff is a 73yoF with PMHx significant for history bioprosthetic AVR, hypertension, hyperlipidemia, OLEG (current CPAP noncompliance), DM2 on oral medications, anxiety/mood disorder who presented with dizziness and headache and transient slurred speech. Stroke work up was negative. UA positive for e coli. Patient improved to baseline with abx. Patient with history of diabetic polyneuropathy and likely component of autonomic dysfunction resulting in dizziness and falls at home. Patient would benefit from over bed table and shower chair given instability. Patient with recent EMG suggestive of likely polyneuropathy. Daughter at bedside on day of discharge and agrees to dispo plan with course of cefdinir. #Dizziness resolved #Stroke-like symptoms iso UTI resolved #Acute cystitis patient presenting with dizziness, headache and transient slurred speech Head CT on arrival unremarkable Head and neck CTA with neck CTA noting atherosclerosis but no significant stenosis MRI with no acute stroke UA suggestive of infection Urine culture currently growing E. coli sensitive to rocephin UTI likely cause of her presenting symptoms Continued with IV Rocephin while admitted -Transitioned to cefdinir on discharge Echo with noted EF 55 to 60%, mild LVH, bioprosthetic aortic valve, moderate moderate mitral valve calcification and trace mitral regurg PT/OT rec home with HH; family declined at this time Continue home pravastatin and baby aspirin continue to monitor #Hypertension BP significantly elevated on admission Continue home Coreg and amlodipine Improved #DM2 hemoglobin A1c currently normal at 5.5 resume home regimen Notes For Next Care Provider Medication Changes From Visit Cefdinir 300mg two times a day, 4 more days Admission HPI Per Admitting Provider History obtained from patient, family, and records. Medical history significant for history bioprosthetic AVR, hypertension, hyperlipidemia, OLEG (current CPAP noncompliance), DM2 on oral medications, anxiety/mood disorder. Last confinement 2006 under orthopedic service for elective right knee surgery. Last week, patient with intermittent episodes of dizziness described as lightheadedness. No spinning sensation or tinnitus or unusual hearing loss. Symptoms later followed by achy headache symptoms. Blood pressure at home okay as per patient although unable to provide numbers. Noncompliant with CPAP for more than 10 years due to machine issues. Denies chest pain, SOB, abdominal pain, dysuria symptoms. Transient slurred speech noted by daughter today. Highest SBP of 200s documented at the ER. Symptoms currently resolved. Medical History as above Surgical History : Knee surgery, carpal tunnel surgery, ovarian abscess removal, dental surgery, aortic valve surgery Family History : DM Personal/Social history : Non-smoker, no EtOH intake, retired from factory work Admission Exam Per Admitting Provider GENERAL: Comfortable, pleasant, obese, short neck, slightly anxious, no respiratory distress SKIN: Normal color, warm HEENT: Bespectacled, pink palpebral conjunctivae, no ptosis, dry buccal mucosa NECK : Supple, no tenderness CHEST : Decreased breath sounds, no tenderness HEART : RRR, systolic murmur ABDOMEN: Some distention, nontender EXTREMITIES : Minimal LE swelling, no LE tenderness, no other conspicuous deformities noted NEUROLOGIC : Coherent, no facial asymmetry, no other gross focality Discharge Exam Constitutional WD/WN, vitals as above Respiratory normal respiratory effort, lungs clear to auscultation Cardiovascular RRR, no murmur, no edema Gastrointestinal (Abdomen) normal bowel sounds, soft, nontender, no hepatosplenomegaly Neurologic PERRL, EOMI, accommodation nl, no face palsy, no dysarthria Updated Medication List Medication Instructions Recorded Confirmed Type amlodipine 5 mg tablet 5 mg PO QAM 01/27/24 01/27/24 History aspirin 81 mg tablet,delayed 81 mg PO DAILY 01/27/24 01/27/24 History release buspirone 5 mg tablet 5 mg PO BID PRN Anxiety 01/27/24 01/27/24 History carvedilol 6.25 mg tablet 6.25 mg PO BID 01/27/24 01/27/24 History fluoxetine 40 mg capsule 40 mg PO QAM 01/27/24 01/27/24 History metformin 1,000 mg tablet 1,000 mg PO BID 01/27/24 01/27/24 History omeprazole 40 mg capsule,delayed 40 mg PO BID 01/27/24 01/27/24 History release pravastatin 20 mg tablet 20 mg PO QAM 01/27/24 01/27/24 History zolpidem 10 mg tablet 10 mg PO HS 01/27/24 01/27/24 History cefdinir 300 mg capsule 300 mg PO BID #7 caps 01/30/24 Rx Hospital Stay Data Consultations 01/27/24 21:11 ED Decision to Admit Stat Diagnostic Imagining Performed 01/27/24 16:44 CT angio head w con Stat CT angio neck with con Stat CT head/brain wo con Stat 01/27/24 22:57 MR brain wo con Routine Pending Results Patient Have Any Pending Studies at Discharge: No Discharge Instructions Given to Patient (Per Discharging Provider) You were admitted for concern of stroke but found to have a urinary tract infection. There was no signs of stroke on imaging. You were set up with home health. You will complete 4 more days of antibiotics by mouth: Cefdinir 300mg two times a day, your next dose is this evening Please continue the course until all antibiotics are complete. Total Time Total Time Spent Total Time Spent (In Minutes): 45
== END 2024-01-30 12:18 | disposition home health service (06) | DRG 690 ==
LOC: ED 16:07 → 2N 22:21 → SUATTDRO 22:21 → 2N 23:09